=== PATIENT | female | born 1975 | race Caucasian/White ===

== ENCOUNTER → 2016-07-19 | Day surgery (SDC) | payer BC ==
[~2016-07-19] VITALS: Ht 170.2 cm; Wt 158.8 kg
[~2016-07-19] MED LIST: ALBUTEROL SULFATE 2.5 MG/0.5 ML INH NEB SOLN As Ordered ONE; ALBUTEROL SULFATE 2.5 MG/0.5 ML INH NEB SOLN INH ONE; BUPIVACAINE HCL 0.25% 30 ML VIAL As Ordered ONE; BUPIVACAINE HCL 0.25% 30 ML VIAL XX ONE; CIPR500T89 PO; FLAG500T PO; GLYCOPYRROLATE INJ 0.2 MG/ML 2 ML VIAL As Ordered ONE; IBUP200C PO; KETOROLAC 30 MG/ML VIAL (J1885) IV SCH; KETOROLAC 60 MG/2 ML VIAL (J1885) As Ordered ONE; LIDOCAINE 1% SDV INJ 30 ML VIAL As Ordered ONE; LIDOCAINE 1% SDV INJ 30 ML VIAL XX ONE; LIDOCAINE 2% INJ 100 MG/5 ML SDV (FOR ANES.) As Ordered ONE; LR 1,000 ML IV SCH; LevoFLOXacin 750 MG in APPROPRIATE DILUENT 1 EA IV ONE; METOCLOPRAMIDE INJ 10MG/2ML VIAL (J2765) As Ordered ONE; MIDAZOLAM INJ 2 MG/2 ML VIAL (J2250) As Ordered ONE; NEOSTIGMINE 1MG/ML 5 ML SYRINGE (J2710) As Ordered ONE; NORCO, ANEXSIA 5/325MG TABLET (HYDROcodone/ACETAMINOPHEN) PO PRN; NORCOTAB PO; ONDANSETRON 4MG/2ML VIAL (J2405) As Ordered ONE; ONDANSETRON 4MG/2ML VIAL (J2405) IV PRN; PERCOCET 5MG/325MG TAB PO PRN; PROMETHAZINE INJ 25 MG/ML VIAL (J2550) As Ordered ONE; PROMETHAZINE INJ 25 MG/ML VIAL (J2550) IV ONE; PROPOFOL 200 MG/20 ML VIAL As Ordered ONE; ROCURONIUM BROMIDE 50 MG/5 ML VIAL As Ordered ONE; TUMS500C PO; dexameTHASONE 4 MG/ML 1ML VIAL (J1100) As Ordered ONE; fentaNYL 100 MCG/2 ML INJECTION (J3010) As Ordered ONE
[2016-07-19 07:43] LABS: CONTROL LINE UCG INT CTR LINE PRESENT
--- NOTE | 2016-07-19 12:07 | RO ---
DATE OF PROCEDURE: 07/19/2016 PREOPERATIVE DIAGNOSES: 1. Cholelithiasis. 2. Chronic cholecystitis. 3. Morbid obesity, body mass index (BMI) 56. POSTOPERATIVE DIAGNOSES: 1. Cholelithiasis. 2. Chronic cholecystitis. 3. Morbid obesity, body mass index (BMI) 56. PROCEDURE: Laparoscopic cholecystectomy. SURGEON: Dr. Weston PSYCHOLOGIST CLINICAL: Dr. Jose ANESTHESIA: General anesthesia. ESTIMATED BLOOD LOSS: 25 mL. COMPLICATIONS: None. REMARKS: Patient tolerated procedure well. PROCEDURE NOTE: Ms. Bianchi is a 40-year-old female, admitted back in May for acute cholecystitis and immediately improved after IV antibiotics and thus, chose to go home and have interval cholecystectomy done in between. She reports doing well. She has had intermittent biliary colic attacks that was not as bad as when she was admitted in the hospital. She presents today for cholecystectomy. Details of the procedure, its risks and benefits were reviewed. In the preop holding area she got 750 mg of Levaquin IV for wound prophylaxis. She was brought to the operating room (OR), laid supine on the table. General endotracheal anesthesia started without any problems. Her abdomen prepped and draped in usual sterile fashion. Surgical time-out then performed. We began our surgery. We made an incision roughly about 5 cm above the umbilicus where she has an abdominal skin crease. This was deepened to the anterior fascia. A Veress needle placed in controlled fashion. Intraabdominal placement confirmed saline drop technique. CO2 insufflation started a pressure of 15 mmHg. Using the same incision, an 11 mm Visiport was placed under direct vision of the laparoscope. At this point, anesthesia noted problems with the bed. Patient is not able to be placed on a reverse Trendelenburg position. While they were figuring this out, we placed three ports over the abdomen under direct vision at the epigastric area, right midclavicular line and right anterior axillary line. At some point, we were working while the patient was in a Trendelenburg position. We tried to start dissecting the fundus of the gallbladder away from the liver bed. At some point, we were able to figure out what is wrong with bed and she was placed on the reverse Trendelenburg position and right side tilted up, the standard position for the laparoscopic cholecystectomy. The fundus of the gallbladder was grasped. It was elevated superiorly. We have already at this point opened up the peritoneum both anteriorly and posteriorly, going up to the midbody of the gallbladder, so we just continued this up until we reached the infundibulum where we crossed anteriorly to connect both dissection points. At this point, we bluntly dissected the infundibulum and the cystic duct was identified. We circumferentially dissected the duct as it courses into the neck of the gallbladder. We dissected medially to this to find the cystic artery. There were a few tubular-like pulsating structures but are small in caliber that we clipped. We then transected this. This allowed us to further dissect the posterior wall of the neck of the gallbladder away from the liver bed and getting a better purchase on the cystic duct. At this point, we palpated. There was about a 2 cm stone stuck at the neck of the gallbladder. There was no stones identified at the cystic duct. Three clips were placed at the cystic duct site toward the gallbladder side to the sides of the cystic duct. I partially transected the duct and placed another clip at cystic duct side to make sure the stump is well controlled after transecting the whole of the cystic duct. The rest of the gallbladder was dissected away from the liver bed with Bovie cautery. The gallbladder was placed in EndoCatch bag, retrieved through umbilical port site. The large stone ripped off the gallbladder was extracting enough fell into the abdomen. We retrieved it back again within another EndoCatch bag. After doing so, we checked on our surgical site. There was not much bleeding. The visible bleeding was suctioned off. Minimal irrigation was used. The clips were noted to be in place. Bile drainage noted. The patient's abdomen was then deflated. All ports removed. The umbilical fascial defect repaired with #0 Vicryl in mattress fashion. All skin incisions closed with #4-0 Monocryl in subcuticular fashion. Steri-Strips were placed at the incision. Additional gauze and Tegaderm placed at the umbilical incision. Patient promptly awakened, extubated and brought to recovery room stable.
[2016-07-19 16:17] VITALS: BP 144/83
== END | disposition home or self-care (01) ==
LOC: M SDC 07:02
PROVIDERS: ATTEND Surgery
DX: K80.10 Calculus of gallbladder with chronic cholecystitis without obstruction (principal); E66.01 Morbid (severe) obesity due to excess calories; J45.909 Unspecified asthma, uncomplicated; G89.29 Other chronic pain; R06.83 Snoring; L40.9 Psoriasis, unspecified; G43.909 Migraine, unspecified, not intractable, without status migrainosus; Z68.43 Body mass index [BMI] 50.0-59.9, adult; Z87.19 Personal history of other diseases of the digestive system; Z88.0 Allergy status to penicillin
CPT/HCPCS: 47562; 84703; 88304; 96374; 96375; J1100; J1885; J1956; J2250; J2405; J2710; J2765; J3010

== ENCOUNTER 2018-04-09 05:40 | Emergency (ER) | payer SELFPAY ==
[2018-04-09 06:23] LABS: BASO % 0.3 % (0.0-1.0); EOS # 0.2 10^3/uL (0.0-0.50); EOS % 2.5 % (0.0-3.0); HEMATOCRIT 40.5 % (36.0-47.0); HEMOGLOBIN 13.2 g/dl (12.0-15.5); IMMATURE GRANULOCYTE % 0.2 % (0-3.0); LYMPH # 2.9 10^3/uL (1.5-4.5); LYMPH % 32.7 % (24.0-44.0); MEAN CORPUSCULAR HEMOGLOBIN 28.6 pg (27.0-33.0); MEAN CORPUSCULAR HGB CONC 32.6 g/dl (32.0-36.5); MEAN CORPUSCULAR VOLUME 87.9 fl (80.0-96.0); MONO # 0.7 10^3/uL (0.0-0.8); MONO % 7.5 % (0.0-5.0); NEUTROPHILS # 5.1 10^3/uL (1.8-7.7); NEUTROPHILS % 56.8 % (36.0-66.0); PLATELET COUNT, AUTOMATED 311 10^3/uL (150-450); RED BLOOD COUNT 4.61 10^6/uL (4.00-5.40); RED CELL DISTRIBUTION WIDTH 13.3 % (11.5-14.5); WHITE BLOOD COUNT 8.9 10^3/uL (4.0-10.0)
[2018-04-09 06:39] LABS: CONTROL LINE HCG INT CTR LINE PRESENT; HCG, SERUM QUALITATIVE NEGATIVE (NEGATIVE)
[2018-04-09 06:52] LABS: ALBUMIN 3.3 GM/DL (3.2-5.2); ALBUMIN/GLOBULIN RATIO 0.92 (1.00-1.93); ALKALINE PHOSPHATASE 78 U/L (45-117); ALT/SGPT 35 U/L (12-78); ANION GAP 5 MEQ/L (8-16); AST/SGOT 15 U/L (7-37); BILIRUBIN,DIRECT < 0.1 MG/DL (0.0-0.2); BILIRUBIN,TOTAL 0.3 MG/DL (0.2-1.0); BLOOD UREA NITROGEN 15 MG/DL (7-18); CALCIUM LEVEL 8.6 MG/DL (8.5-10.1); CARBON DIOXIDE LEVEL 28 MEQ/L (21-32); CHLORIDE LEVEL 109 MEQ/L (98-107); CPK CREATINE PHOSPHOKINASE 81 U/L (26-192); GLOMERULAR FILTRATION RATE > 60.0 (>58); GLUCOSE, FASTING 114 MG/DL (70-100); LIPASE 172 U/L (73-393); MB/CK RELATIVE INDEX 1.48 (< OR =4); POTASSIUM SERUM 4.2 MEQ/L (3.5-5.1); SODIUM LEVEL 142 MEQ/L (136-145); TOTAL PROTEIN 6.9 GM/DL (6.4-8.2); TROPONIN I < 0.02 NG/ML (< 0.10)
[2018-04-09] MEDS: ONDANSETRON 4MG/2ML VIAL (J2405) IV (06:56)
[2018-04-09] MEDS: NS 1,000 ML IV (06:56)
[2018-04-09] MEDS: MORPHINE 4 MG/ML 1ML VIAL/SYRINGE (J2270) IV (06:56)
[2018-04-09] MEDS ORDERED: ISOVUE-370 76% 100ML VIAL (Q9967) As Ordered (07:08)
[2018-04-09] MEDS: PANTOPRAZOLE 40MG INJ (PROTONIX) (C9113) IV (09:01)
[2018-04-09] MEDS: GI COCKTAIL 50ML BTL(HYOSCYAMINE/MAALOX/LIDOCAINE VISCOUS)(1:3:1) PO (09:01)
== END 2018-04-09 10:00 | disposition home or self-care (01) ==
LOC: M ED 05:40
DX: R10.9 Unspecified abdominal pain (principal)
CPT/HCPCS: C9113

== ENCOUNTER 2020-12-20 12:25 | Emergency (ER) | payer SELFPAY ==
[~2020-12-20] VITALS: Ht 170.2 cm; Wt 165.9 kg
[~2020-12-20 12:25] MED LIST changes: -ALBUTEROL SULFATE 2.5 MG/0.5 ML INH NEB SOLN As Ordered ONE; -ALBUTEROL SULFATE 2.5 MG/0.5 ML INH NEB SOLN INH ONE; -BUPIVACAINE HCL 0.25% 30 ML VIAL As Ordered ONE; -BUPIVACAINE HCL 0.25% 30 ML VIAL XX ONE; +CIPR-249 PO; -CIPR500T89 PO; -GLYCOPYRROLATE INJ 0.2 MG/ML 2 ML VIAL As Ordered ONE; +HYDR-3715 PO; -IBUP200C PO; +IBUP200C25 PO; -KETOROLAC 30 MG/ML VIAL (J1885) IV SCH; -KETOROLAC 60 MG/2 ML VIAL (J1885) As Ordered ONE; -LIDOCAINE 1% SDV INJ 30 ML VIAL As Ordered ONE; -LIDOCAINE 1% SDV INJ 30 ML VIAL XX ONE; -LIDOCAINE 2% INJ 100 MG/5 ML SDV (FOR ANES.) As Ordered ONE; -LR 1,000 ML IV SCH; -LevoFLOXacin 750 MG in APPROPRIATE DILUENT 1 EA IV ONE; -METOCLOPRAMIDE INJ 10MG/2ML VIAL (J2765) As Ordered ONE; -MIDAZOLAM INJ 2 MG/2 ML VIAL (J2250) As Ordered ONE; -NEOSTIGMINE 1MG/ML 5 ML SYRINGE (J2710) As Ordered ONE; -NORCO, ANEXSIA 5/325MG TABLET (HYDROcodone/ACETAMINOPHEN) PO PRN; -NORCOTAB PO; -ONDANSETRON 4MG/2ML VIAL (J2405) As Ordered ONE; -ONDANSETRON 4MG/2ML VIAL (J2405) IV PRN; -PERCOCET 5MG/325MG TAB PO PRN; -PROMETHAZINE INJ 25 MG/ML VIAL (J2550) As Ordered ONE; -PROMETHAZINE INJ 25 MG/ML VIAL (J2550) IV ONE; -PROPOFOL 200 MG/20 ML VIAL As Ordered ONE; +PROT1TAB2 PO; -ROCURONIUM BROMIDE 50 MG/5 ML VIAL As Ordered ONE; +SUCR1TA PO; -dexameTHASONE 4 MG/ML 1ML VIAL (J1100) As Ordered ONE; -fentaNYL 100 MCG/2 ML INJECTION (J3010) As Ordered ONE
[2020-12-20] MEDS ORDERED: KETOROLAC TROMETHAMINE 10 MG TAB PO ONE (15:40)
--- NOTE | 2020-12-20 15:41 | REP ---
INDICATION: swelling/pain COMPARISON: None. TECHNIQUE: Alvarez scale and color Doppler evaluation using linear high frequency transducer. FINDINGS: Ultrasound examination of the left lower extremity deep venous structures from the common femoral vein through the popliteal vein demonstrates normal compressibility flow and wave patterns in response to respiration and augmentation. Calf veins could not be evaluated due to edema. There is no evidence for deep venous thrombosis. Contralateral CFV is patent and normal. IMPRESSION: No evidence for deep venous thrombosis. <Electronically signed by Miguel Britton > 12/20/20 1530
--- NOTE | 2020-12-20 16:19 | REP ---
INDICATION: pain/swelling COMPARISON: 03/18/2015 TECHNIQUE: AP, lateral, bilateral oblique and sunrise views. FINDINGS: Moderate tricompartmental osteoarthritic degenerative changes are appreciated. Findings include medial and patello femoral joint space narrowing as well as osteophytosis. No acute fracture or dislocation. No effusion. IMPRESSION: Moderate tricompartmental osteoarthritic degenerative changes. <Electronically signed by Miguel Britton > 12/20/20 [id number]
[2020-12-20] MEDS ORDERED: DICL75TA PO (16:52)
[2020-12-20 17:20] VITALS: BP 132/86
== END 2020-12-20 17:22 | disposition home or self-care (01) ==
LOC: M ED 12:25
DX: M17.12 Unilateral primary osteoarthritis, left knee (principal); J45.909 Unspecified asthma, uncomplicated; Z88.0 Allergy status to penicillin

== ENCOUNTER → 2021-01-26 | Outpatient (CLI) | payer SELFPAY ==
[~2021-01-26] MED LIST changes: +ASPI-551 PO; +DICL75TA PO; +IBUP200T46 PO; +MUCI120T PO; +PRED10TA2 PO
[2021-01-26 10:55] LABS: BASO % 0.5 % (0.0-1.0); EOS # 0.2 10^3/uL (0.0-0.5); EOS % 2.5 % (0.0-3.0); HEMATOCRIT 41.8 % (36.0-47.0); HEMOGLOBIN 13.1 g/dl (12.0-15.5); LYMPH # 2.3 10^3/uL (1.5-5.0); LYMPH % 27.4 % (24.0-44.0); MEAN CORPUSCULAR HEMOGLOBIN 28.5 pg (27.0-33.0); MEAN CORPUSCULAR HGB CONC 31.3 g/dl (32.0-36.5); MEAN CORPUSCULAR VOLUME 90.9 fl (80.0-96.0); MONO # 0.5 10^3/uL (0.0-0.8); MONO % 5.9 % (2.0-8.0); NEUTROPHILS # 5.4 10^3/uL (1.5-8.5); NEUTROPHILS % 63.3 % (36.0-66.0); PLATELET COUNT, AUTOMATED 379 10^3/uL (150-450); WHITE BLOOD COUNT 8.5 10^3/uL (4.0-10.0)
[2021-01-26 11:23] LABS: C REACTIVE PROTEIN QUANTITATIV 1.87 MG/DL (0.00-0.30); RHEUMATOID FACTOR QUANT < 10.0 IU/ML (<15.0)
[2021-01-26 11:26] LABS: ERYTHROCYTE SEDIMENTATION RATE 22 mm/hr (0-20)
== END ==
LOC: M PLALAB 08:20
PROVIDERS: ATTEND Student in an Organized Health Care Education/Training Program
DX: L40.9 Psoriasis, unspecified (principal)

== ENCOUNTER 2021-04-12 01:21 | Inpatient (IN) | payer SELFPAY ==
[~2021-04-12] VITALS: Ht 170.2 cm; Wt 160.7 kg
[~2021-04-12 01:21] MED LIST changes: -ASPI-551 PO; -IBUP200T46 PO; -MUCI120T PO; -PRED10TA2 PO
[2021-04-12] MEDS ORDERED: MUCI120T PO (01:31)
[2021-04-12 03:16] LABS: BASO % 0.3 % (0.0-1.0); EOS % 0.3 % (0.0-3.0); HEMATOCRIT 39.8 % (36.0-47.0); HEMOGLOBIN 12.9 g/dl (12.0-15.5); LYMPH # 1.1 10^3/uL (1.5-5.0); LYMPH % 27.6 % (24.0-44.0); MEAN CORPUSCULAR HEMOGLOBIN 28.5 pg (27.0-33.0); MEAN CORPUSCULAR HGB CONC 32.4 g/dl (32.0-36.5); MEAN CORPUSCULAR VOLUME 88.1 fl (80.0-96.0); MONO # 0.3 10^3/uL (0.0-0.8); MONO % 7.5 % (2.0-8.0); NEUTROPHILS # 2.5 10^3/uL (1.5-8.5); PLATELET COUNT, AUTOMATED 240 10^3/uL (150-450); RED BLOOD COUNT 4.52 10^6/uL (4.00-5.40); WHITE BLOOD COUNT 3.9 10^3/uL (4.0-10.0)
[2021-04-12 03:16] LABS: RSV AMPLIFICATION NEGATIVE (NEGATIVE)
[2021-04-12 03:49] LABS: ALBUMIN 3.5 GM/DL (3.2-5.2); ALT/SGPT 118 U/L (12-78); BILIRUBIN,DIRECT 0.2 MG/DL (0.0-0.2); BILIRUBIN,TOTAL 0.4 MG/DL (0.2-1.0); BLOOD UREA NITROGEN 14 MG/DL (7-18); CALCIUM LEVEL 8.7 MG/DL (8.5-10.1); CARBON DIOXIDE LEVEL 31 MEQ/L (21-32); CHLORIDE LEVEL 106 MEQ/L (98-107); CK-MB VALUE MASS 1.4 NG/ML (<3.6); CPK CREATINE PHOSPHOKINASE 102 U/L (26-192); CREATININE FOR GFR 0.51 MG/DL (0.55-1.30); GLOMERULAR FILTRATION RATE > 60.0 (>58); GLUCOSE, FASTING 108 MG/DL (70-100); MB/CK RELATIVE INDEX 1.37 (< OR =4); NT-PRO BNP 22 PG/ML (<125); SODIUM LEVEL 141 MEQ/L (136-145); TOTAL PROTEIN 7.3 GM/DL (6.4-8.2); TROPONIN I < 0.02 NG/ML (< 0.10)
--- NOTE | 2021-04-12 03:50 | REPVR ---
PROCEDURE INFORMATION: Exam: XR Chest Exam date and time: 04/12/2021 3:04 AM Age: 45 years old Clinical indication: Cough; Additional info: Dyspnea TECHNIQUE: Imaging protocol: XR of the chest. Views: 1 view. COMPARISON: 1. CR Abdomen,Flat Upright,PA CHEST 05/28/2016 9:[address] ABD/PEL W/IV CONTRAST ONLY 04/09/2018 7:59:30 AM FINDINGS: Lungs: The lung volumes are low. There are subtle airspace opacities in both lungs, predominantly in the lung bases. Pleural spaces: Unremarkable. No pleural effusion. No pneumothorax. Heart/Mediastinum: Unremarkable. No cardiomegaly. Bones/joints: Unremarkable. Organs: There are surgical clips in the right upper quadrant of the abdomen related to a cholecystectomy. IMPRESSION: Subtle airspace opacities in both lungs, which may represent pneumonia. Electronically signed by: Mikel Guzman On 04/12/2021 03:50:18 AM
[2021-04-12] MEDS ORDERED: ISOVUE-370 76% 100ML VIAL As Ordered ONE (04:16)
[2021-04-12] MEDS ORDERED: ONDANSETRON 4MG/2ML VIAL IV ONE (05:25)
--- NOTE | 2021-04-12 05:34 | REPVR ---
PROCEDURE INFORMATION: Exam: CTA Chest With Contrast Exam date and time: 04/12/2021 4:32 AM Age: 45 years old Clinical indication: Pain; Chest pressure; Additional info: COVID +, D-dimer, chest pain TECHNIQUE: Imaging protocol: Computed tomographic angiography of the chest with contrast. 3D rendering (Not supervised by radiologist): MIP and/or 3D reconstructed images were created by the technologist. Radiation optimization: All CT scans at this facility use at least one of these dose optimization techniques: automated exposure control; mA and/or kV adjustment per patient size (includes targeted exams where dose is matched to clinical indication); or iterative reconstruction. Contrast material: ISO 370; Contrast volume: 75 ml; Contrast route: INTRAVENOUS (IV); COMPARISON: CR PORTABLE CHEST X-RAY 04/12/2021 2:56 AM FINDINGS: Limitations: Respiratory motion artifact degrades the image quality. Pulmonary arteries: No pulmonary embolism is identified in the main, lobar, or segmental pulmonary arteries in the upper lobes and left lower lobe. The timing of the contrast bolus and respiratory motion artifact limits the evaluation of the lobar, segmental, and subsegmental pulmonary arteries in the right middle lobe, right lower lobe, and lingula and the subsegmental pulmonary arteries in the upper lobes and left lower lobe, which are poorly opacified. Aorta: The thoracic aorta is intact and patent. There is no thoracic aortic aneurysm, pseudoaneurysm, penetrating atherosclerotic ulcer, intramural hematoma, or dissection. Great vessels off aortic arch: The brachiocephalic artery, imaged proximal portions of the common carotid arteries, imaged proximal portions of the vertebral arteries, and subclavian arteries are intact. No stenosis or occlusion of these vessels is noted. Trachea: Normal. Lungs: There are extensive ground-glass opacities in a rounded configuration with areas of superimposed consolidation in both upper and lower lobes, right middle lobe, and lingula. There is a 7 mm calcified granuloma in the posterior segment of the right lower lobe (image 106 of the axial series 401). Pleural spaces: Normal. No pneumothorax or pleural effusion. Heart: No cardiomegaly or pericardial effusion. The ratio of the diameter of the right ventricle to the diameter of the left ventricle measures less than 1, which is within normal limits and there is no CT evidence for a right ventricular strain. Mediastinal space: No mediastinal mass, fluid collection, or pneumomediastinum. Lymph nodes: Normal. No enlarged lymph nodes. Liver: There is fatty infiltration of the liver. The liver was not fully imaged. Gallbladder and bile ducts: There has been a cholecystectomy. There is no fluid collection in the gallbladder fossa. No dilation of the bile ducts is noted. No calcified stones are seen in the common bile duct. Spleen: The spleen is heterogeneous in appearance, which is likely secondary to the arterial timing of the contrast bolus. No splenomegaly. Adrenal glands: Normal. No adrenal mass is noted. Bones/joints: There is no acute fracture or dislocation. No suspicious osteolytic or osteoblastic lesion. There is mild chronic anterior wedging of the T5, T6, T7, T8, T9, T10, and T11 vertebral bodies. Soft tissues: Unremarkable. IMPRESSION: 1. No pulmonary embolism identified in the main, lobar, or segmental pulmonary arteries in the upper lobes and left lower lobe. The timing of the contrast bolus and respiratory motion artifact limits the evaluation of the lobar, segmental, and subsegmental pulmonary arteries in the right middle lobe, right lower lobe, and lingula, and the subsegmental pulmonary arteries in the upper lobes and left lower lobe, which are poorly opacified. 2. Ground-glass opacities in both lungs with areas of superimposed consolidation, which are findings in keeping with the patient's history of COVID positive pneumonia. 3. Fatty liver. Electronically signed by: Mikel Guzman On 04/12/2021 05:33:29 AM
--- NOTE | 2021-04-12 06:01 | ECGEPIP ---
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
[2021-04-12] MEDS ORDERED: dexameTHASONE 20MG/5ML VIAL (J1100 PER 1MG) IV ONE (06:30)
[2021-04-12] MEDS: COMBIVENT RESPIMAT 100-20MCG INHALER 4GM INH SCH ×3 (06:35→06:49)
[2021-04-12] MEDS ORDERED: HOME MED LIST COMPLETE! XX SCH (06:40)
[2021-04-12] MEDS ORDERED: IBUP200T46 PO (06:40)
[2021-04-12] MEDS ORDERED: ONDANSETRON 4MG/2ML VIAL IV PRN (08:00)
[2021-04-12 08:22] LABS: FERRITIN 128 NG/ML (8-252)
[2021-04-12] MEDS ORDERED: ALBUTEROL 90 MCG/ACT 8GM HFA INHALER INH SCH (09:00)
[2021-04-12] MEDS: dexameTHASONE 4 MG/ML 1ML VIAL (J1100 PER 1MG) IV SCH (09:32)
[2021-04-12] MEDS: PANTOPRAZOLE 40MG TAB (PROTONIX) PO SCH (09:32)
[2021-04-12] MEDS: ASPIRIN 81MG ENTERIC TABLET PO SCH (09:32)
[2021-04-12] MEDS: ENOXAPARIN 40MG/0.4ML SYRINGE (J1650 PER 10MG) SC SCH ×2 (09:32→22:29)
[2021-04-12] MEDS ORDERED: IBUPROFEN 600MG TAB PO PRN (10:05)
--- NOTE | 2021-04-12 10:25 | HPEPDOC ---
General Date of Admission Apr 12, 2021 at 07:59 Date of Service: Apr 12, 2021 Chief Complaint The patient is a 45-year-old female admitted with a reason for visit of Pneumonia Due To Covid-19 Virus. Source: Patient History of Present Illness 45-year-old morbidly obese female with past medical history of sleep apnea untreated, asthma presents to the emergency room with 7 days history of respiratory tract symptoms with cough, cold, sore throat, nasal congestion, malaise and fatigue. She developed shortness of breath and chest tightness last night. When she laid down she felt she could not catch her breath could not breathe in enough air so presented to the emergency room. In the ED she was mildly hypoxic to 88% at rest in room air so was put on 2 L of nasal cannula and given 3 rounds of treatment with Combivent with that she felt some improvement but still continues to complain of chest tightness and shortness of breath. She was tested for Covid and was positive. Chest x-ray showed diffuse infiltrates. She was admitted for Covid pneumonia with hypoxia. Home Medications Scheduled Guaifenesin/Pseudoephedrne HCl (Mucinex D ER 1,200-120 mg Tab) 1 Each Tab.er.12h, 1 TAB PO BID, (Reported) Scheduled PRN Ibuprofen (Ibu-200) 200 Mg Tablet, 600 MG PO TID PRN for pain/fever, (Reported) Allergies Coded Allergies: Penicillins (Verified Allergy, Intermediate, hives, 12/20/20) Past Medical History Medical History Morbid obesity BMI of 54.9, RASHAD, asthma, psoriasis, chronic back pain Surgical History Cholecystectomy Family History Significant Family History: Diabetes, Heart disease, Hypertension Social History * Smoker: non-smoker Alcohol: Denies Drugs: denies A-FIB/CHADSVASC A-FIB History Current/History of A-Fib/PAF?: No Review of Systems Constitutional: Reports: Malaise, Fatigue Eyes: Denies: Pain, Vision change ENT: Reports: Sinus Congestion, Sore Throat; Denies: Head Aches, Ear Pain, Dysphagia Skin: Reports: Rash, Lesions Pulmonary: Reports: Dyspnea, Cough Gastrointestinal: Denies: Nausea, Vomiting Genitourinary: Denies: Dysuria, Frequency, Incontinence, Retention Hematologic: Denies: Bruising, Bleeding Excessively Musculoskeletal: Reports: Back Pain, Muscle Pain; Denies: Neck Pain Neurological: Denies: Weakness, Numbness, Change in speech, Confusion Physical Examination General Exam: Positive: Alert, Cooperative, No Acute Distress Eye Exam: Positive: PERRLA, Conjunctiva & lids normal, EOMI; Negative: Sclera icteric ENT Exam: Positive: Atraumatic, Mucous membr. moist/pink, Pharynx Normal Neck Exam: Positive: Supple; Negative: JVD, thyromegaly Chest Exam: Positive: Diminished, Other (Bilateral diffuse crackles) Heart Exam: Positive: Rate Normal, Regular Rhythm, Normal S1, Normal S2; Negative: Murmurs, Rubs Abdomen Exam: Positive: Normal bowel sounds, Soft; Negative: Tenderness, Hepatospenomegaly Extremity Exam: Negative: Clubbing, Cyanosis, Edema Skin Exam: Positive: Rash (Psoriatic rash all over ) Neuro Exam: Positive: Normal Speech, Strength at 5/5 X4 ext, Normal Tone Psych Exam: Positive: Memory Intact, Oriented x 3 Vital Signs Vital Signs Date Time Temp Pulse Resp B/P (MAP) Pulse Ox O2 Delivery O2 Flow Rate FiO2 04/12/21 09:45 129/64 (85) 04/12/21 09:30 81 93 04/12/21 05:36 22 Room Air 04/12/21 01:21 99.4 Laboratory Data Labs 24H Laboratory Tests 2 04/12/21 02:17: Coronavirus (COVID-19)(PCR) POSITIVEA, Influenza Type A (RT-PCR) NEGATIVE, Influenza Type B (RT-PCR) NEGATIVE, Respiratory Syncytial Virus (PCR) NEGATIVE 04/12/21 02:54: Immature Granulocyte % (Auto) 0.3, Neutrophils (%) (Auto) 64.0, Lymphocytes (%) (Auto) 27.6, Monocytes (%) (Auto) 7.5, Eosinophils (%) (Auto) 0.3, Basophils (%) (Auto) 0.3, Neutrophils # (Auto) 2.5, Lymphocytes # (Auto) 1.1L, Monocytes # (Auto) 0.3, Eosinophils # (Auto) 0.0, Basophils # (Auto) 0.0, Nucleated Red Blood Cells % (auto) 0.0, D-Dimer, Quantitative 552.50H, Anion Gap 4L, Glomerular Filtration Rate > 60.0, Calcium Level 8.7, Ferritin 128, Total Bilirubin 0.4, Direct Bilirubin 0.2, Aspartate Amino Transf (AST/SGOT) 76H, Alanine Aminotransferase (ALT/SGPT) 118H, Alkaline Phosphatase 91, Total Creatine Kinase 102, Creatine Kinase MB 1.4, Creatine Kinase MB Relative Index 1.37, Troponin I < 0.02, MW-Qtp-C-Type Natriuretic Peptide 22, Total Protein 7.3, Albumin 3.5, Albumin/Globulin Ratio 0.9L 04/12/21 03:24: POC pH (Misc Panel) 7.444, POC Base Excess (Misc Panel) 3.0, POC Saturated Percent O2 (Misc) 94L, POC pO2 (Misc Panel) 69.0L, POC pCO2 (Misc Panel) 39.2, POC HCO3 (Misc Panel) 26.9H, POC Total CO2 (Misc Panel) 28.0H CBC/BMP Laboratory Tests 04/12/21 02:54 Microbiology Microbiology 04/12/21 Blood Culture, Received Pending 04/12/21 Blood Culture, Received Pending Assessment/Plan 45-year-old morbidly obese female with past medical history of sleep apnea untreated, asthma presents to the emergency room with 7 days history of respiratory tract symptoms with cough, cold, sore throat, nasal congestion, malaise and fatigue. She developed shortness of breath and chest tightness last night. When she laid down she felt she could not catch her breath could not breathe in enough air so presented to the emergency room. In the ED she was mildly hypoxic to 88% at rest in room air so was put on 2 L of nasal cannula and given 3 rounds of treatment with Combivent with that she felt some improvement but still continues to complain of chest tightness and shortness of breath. She was tested for Covid and was positive. Chest x-ray showed diffuse infiltrates. She was admitted for Covid pneumonia with hypoxia. Covid pneumonia Patient was mildly hypoxic requiring 2 L of oxygen Covid labs ordered We will give a dexamethasone, remdesivir, Lovenox twice daily, aspirin Encourage awake proning Incentive spirometry Mild transaminitis Likely due to Covid infection We will continue to monitor daily while on remdesivir She does have history of fatty liver also. Morbid obesity with sleep apnea Untreated History of asthma We will continue with albuterol 4 times qid Plan / VTE VTE Prophylaxis Ordered?: Yes Naty Paulson MD Apr 12, 2021 10:25
[2021-04-12 10:45] LABS: PROTHROMBIN TIME 13.6 SECONDS (12.7-14.5)
[2021-04-12 10:46] LABS: PARTIAL THROMBOPLASTIN TIME 35.2 SECONDS (25.9-37.0)
[2021-04-12 10:57] LABS: CPK CREATINE PHOSPHOKINASE 74 U/L (26-192); LDH LACTATE DEHYDROGENASE 305 U/L (84-246)
[2021-04-12 12:00] VITALS: BP 160/84
[2021-04-12] MEDS: ALBUTEROL 90 MCG/ACT 8GM HFA INHALER INH SCH ×3 (13:34→20:56)
[2021-04-12] MEDS ORDERED: REMDESIVIR 200 MG in NS 250 ML IV ONE (14:00)
[2021-04-12] MEDS ORDERED: SODIUM CHLORIDE 0.9% INJ 10 ML SYR IV ONE (16:00)
--- NOTE | 2021-04-12 21:16 | ECGEPIP ---
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 No 1st degree AV block or PACs compared with 04/12/2021. Electronically Signed on 04-12-2021 21:16:18 EDT by Jonathan Trotter
[2021-04-12 22:00] VITALS: BP 140/86
[2021-04-13 06:30] VITALS: BP 150/78
[2021-04-13 07:02] LABS: HEMATOCRIT 37.5 % (36.0-47.0); LYMPH % 33.7 % (24.0-44.0); MEAN CORPUSCULAR HEMOGLOBIN 28.4 pg (27.0-33.0); MEAN CORPUSCULAR VOLUME 88.7 fl (80.0-96.0); MONO # 0.4 10^3/uL (0.0-0.8); MONO % 12.7 % (2.0-8.0); NEUTROPHILS # 1.6 10^3/uL (1.5-8.5); NEUTROPHILS % 53.3 % (36.0-66.0); PLATELET COUNT, AUTOMATED 212 10^3/uL (150-450); RED BLOOD COUNT 4.23 10^6/uL (4.00-5.40)
[2021-04-13 07:25] LABS: ALT/SGPT 144 U/L (12-78); BILIRUBIN,DIRECT < 0.1 MG/DL (0.0-0.2); BILIRUBIN,TOTAL 0.3 MG/DL (0.2-1.0); BLOOD UREA NITROGEN 16 MG/DL (7-18); CALCIUM LEVEL 8.7 MG/DL (8.5-10.1); CARBON DIOXIDE LEVEL 32 MEQ/L (21-32); CHLORIDE LEVEL 107 MEQ/L (98-107); CREATININE FOR GFR 0.54 MG/DL (0.55-1.30); GLOMERULAR FILTRATION RATE > 60.0 (>58); GLUCOSE, FASTING 127 MG/DL (70-100); MAGNESIUM LEVEL 2.1 MG/DL (1.8-2.4); POTASSIUM SERUM 3.9 MEQ/L (3.5-5.1); SODIUM LEVEL 143 MEQ/L (136-145); TOTAL PROTEIN 6.8 GM/DL (6.4-8.2)
[2021-04-13] MEDS: ALBUTEROL 90 MCG/ACT 8GM HFA INHALER INH SCH (08:00)
[2021-04-13] MEDS: ASPIRIN 81MG ENTERIC TABLET PO SCH (09:09)
[2021-04-13] MEDS: PANTOPRAZOLE 40MG TAB (PROTONIX) PO SCH (09:09)
[2021-04-13] MEDS: dexameTHASONE 4 MG/ML 1ML VIAL (J1100 PER 1MG) IV SCH (09:10)
[2021-04-13] MEDS: ENOXAPARIN 40MG/0.4ML SYRINGE (J1650 PER 10MG) SC SCH (09:10)
[2021-04-13] MEDS ORDERED: PRED10TA2 PO (09:58)
[2021-04-13] MEDS ORDERED: ASPI-551 PO (09:58)
[2021-04-13] MEDS ORDERED: REMDESIVIR 100 MG in NS 250 ML IV SCH (14:00)
[2021-04-13] MEDS ORDERED: SODIUM CHLORIDE 0.9% INJ 10 ML SYR IV SCH (15:00)
--- NOTE | 2021-05-19 16:05 | DS.PDOC ---
Discharge Summary General Date of Admission Apr 12, 2021 at 07:59 Date of Discharge 04/13/21 Discharge Summary PROCEDURES PERFORMED DURING STAY: [None]. DISCHARGE DIAGNOSES: #COVID-19 infection acute hypoxic respiratory #morbid obesity #RASHAD #asthma #psoriasis #chronic lower back pain COMPLICATIONS/CHIEF COMPLAINT: Pneumonia Due To Covid-19 Virus. HPI/Hospital Course: From [facility]&P 45-year-old morbidly obese female with past medical history of sleep apnea untreated, asthma presents to the emergency room with 7 days history of respiratory tract symptoms with cough, cold, sore throat, nasal congestion, malaise and fatigue. She developed shortness of breath and chest tightness last night. When she laid down she felt she could not catch her breath could not breathe in enough air so presented to the emergency room. In the ED she was mildly hypoxic to 88% at rest in room air so was put on 2 L of nasal cannula and given 3 rounds of treatment with Combivent with that she felt some improvement but still continues to complain of chest tightness and shortness of breath. She was tested for Covid and was positive. Chest x-ray showed diffuse infiltrates. She was admitted for Covid pneumonia with hypoxia. Patient admitted for further evaluation and treatment with steroid therapy, remdesivier and anti-coagulation. She responded well to treatment with supplemental oxygen. Her O2 sats remained stable, without any other complaints. She was very anxious to return home. As such, patient was discharged home in stable condition with outpatient follow up. DISCHARGE MEDICATIONS: Please see below. ALLERGIES: Please see below. PHYSICAL EXAMINATION ON DISCHARGE: VITAL SIGNS: Please see below. GENERAL: NAD, lying comfortably in bed HEENT: NC/AT Lungs: speaking easily in full sentences, no accessory muscle use Abd: morbidly obese Ext: peripheral edema Neuro: no gross focal deficits Psych: AAOx3 LABORATORY DATA: Please see below. DISPOSITION: 01 Home, Self-Care. DISCHARGE INSTRUCTIONS: 1. Follow up with PCP in 3-5 days. DISCHARGE CONDITION: [Stable]. TIME SPENT ON DISCHARGE: 35 minutes. Discharge Medications Scheduled Aspirin (Aspirin EC) 81 Mg Tablet.dr, 81 MG PO DAILY Guaifenesin/Pseudoephedrne HCl (Mucinex D ER 1,200-120 mg Tab) 1 Each Tab.er.12h, 1 TAB PO BID, (Reported) Prednisone (Prednisone) 10 Mg Tablet, 10 MG PO TAPER Take 4 tabs daily x 3 days, then 3 tabs daily x 3 days, then 2 tabs daily x 3 days, then 1 tab daily x 3 days and stop Scheduled PRN Ibuprofen (Ibu-200) 200 Mg Tablet, 600 MG PO TID PRN for pain/fever, (Reported) Allergies Coded Allergies: Penicillins (Verified Allergy, Intermediate, hives, 12/20/20) MADHAVI UNDERWOOD MD May 19, 2021 16:05
== END 2021-04-13 13:33 | disposition home or self-care (01) | DRG 137 ==
LOC: M ED 01:21 → M ED INP 07:59 → ENRESERV 09:45 → M 4MAIN 12:00
PROVIDERS: ADMIT Internal Medicine Nephrology; ATTEND Internal Medicine Nephrology
PROC: XW033E5 Introduction of Remdesivir Anti-infective into Peripheral Vein, Percutaneous Approach, New Technology Group 5 (ICD-10-PCS; principal; 2021-04-12)
PROC: 3E0333Z Introduction of Anti-inflammatory into Peripheral Vein, Percutaneous Approach (ICD-10-PCS; 2021-04-12)
DX: U07.1 COVID-19 (principal); J12.82 Pneumonia due to coronavirus disease 2019; G47.33 Obstructive sleep apnea (adult) (pediatric); E66.01 Morbid (severe) obesity due to excess calories; J45.909 Unspecified asthma, uncomplicated; Z68.43 Body mass index [BMI] 50.0-59.9, adult; L40.9 Psoriasis, unspecified; Z90.49 Acquired absence of other specified parts of digestive tract; Z88.0 Allergy status to penicillin; R74.01 Elevation of levels of liver transaminase levels

== ENCOUNTER → 2022-02-09 | Outpatient (CLI) | payer SELFPAY ==
[~2022-02-09] MED LIST changes: +ASPI-551 PO; +IBUP200T46 PO; +MUCI120T PO; +PRED10TA2 PO
== END ==
LOC: M SOG 08:36
PROVIDERS: ATTEND Orthopaedic Surgery Adult Reconstructive Orthopaedic Surgery
DX: M17.0 Bilateral primary osteoarthritis of knee (principal)

== ENCOUNTER → 2023-01-04 | Outpatient (CLI) | payer SELFPAY | LOC: M SOG 07:51 | PROVIDERS: ATTEND Orthopaedic Surgery | DX: M17.0 Bilateral primary osteoarthritis of knee (principal) ==

== ENCOUNTER 2025-03-13 10:48 | Emergency (ER) | payer SELFPAY ==
[~2025-03-13] VITALS: Ht 170.2 cm; Wt 152.4 kg
[2025-03-13 11:34] LABS: BASO # 0.0 10^3/uL (0.0-0.2); BASO % 0.6 % (0.0-1.0); EOS # 0.2 10^3/uL (0.0-0.5); EOS % 3.1 % (0.0-3.0); LYMPH # 1.5 10^3/uL (1.5-5.0); LYMPH % 21.3 % (24.0-44.0); MONO # 0.5 10^3/uL (0.0-0.8); MONO % 6.4 % (2.0-8.0); NEUTROPHILS # 4.8 10^3/uL (1.5-8.5); NEUTROPHILS % 68.2 % (36.0-66.0); PLATELET COUNT, AUTOMATED 290 10^3/uL (150-450)
[2025-03-13 12:10] LABS: ALT/SGPT 26 U/L (7.0-40); AST/SGOT 19 U/L (<34); CALCIUM LEVEL 8.7 MG/DL (8.5-10.1); CARBON DIOXIDE LEVEL 28 MMOL/L (20-31); CHLORIDE LEVEL 103 MMOL/L (98-107); CK-MB VALUE MASS 1.3 NG/ML (<3.6); CPK CREATINE PHOSPHOKINASE 56 U/L (34-145); CREATININE FOR GFR 0.42 MG/DL (0.55-1.30); GLOMERULAR FILTRATION RATE > 90.0 (>58); MB/CK RELATIVE INDEX 2.32 (< OR =4); POTASSIUM SERUM 4.3 MMOL/L (3.5-5.1); SODIUM LEVEL 142 MMOL/L (136-145)
[2025-03-13] MEDS ORDERED: HOME MED LIST COMPLETE! XX SCH (12:30)
[2025-03-13] MEDS: KETOROLAC 30 MG/ML 1 ML VIAL IV ONE (12:39)
[2025-03-13] MEDS ORDERED: ISOVUE-370 76% 100 ML VIAL As Ordered ONE (12:42)
[2025-03-13] MEDS ORDERED: KETO-204 PO (14:22)
[2025-03-13] MEDS ORDERED: PANT-23 PO (14:33)
[2025-03-13 14:43] VITALS: BP 170/80; TEMP 97.3; O2SAT 100
== END 2025-03-13 14:47 | disposition home or self-care (01) ==
LOC: M ED 10:48
DX: S46.811A Strain of other muscles, fascia and tendons at shoulder and upper arm level, right arm, initial encounter (principal); R10.9 Unspecified abdominal pain; X58.XXXA Exposure to other specified factors, initial encounter; Y92.9 Unspecified place or not applicable; Y93.9 Activity, unspecified; Y99.9 Unspecified external cause status; Z86.16 Personal history of COVID-19; L40.8 Other psoriasis; M54.9 Dorsalgia, unspecified; G47.33 Obstructive sleep apnea (adult) (pediatric); Z88.0 Allergy status to penicillin
CPT/HCPCS: 71046; 71275; 74177; 80048; 80076; 82550; 82553; 83690; 84484; 85025; 93005; 93041; 94760; 96374; 99285; J1885; Q9967